=== PATIENT | male | born 1950 | race Hispanic/Latino ===

== ENCOUNTER 2018-05-10 10:14 | Emergency (ER) | payer OTHER, MEDICARE ==
[~2018-05-10 10:14] MED LIST: ASPI-1181 PO; ASPI-555 PO; ATOR20TA65 PO; CHOL200074 PO; CLOP75TA14 PO; CYAN100T PO; FERR325C PO; FERS325 PO; FOLI1TAB15 PO; FURO40TA5 PO; GABA-531 PO; IMAT400T2 PO; IMAT400T8 PO; ISOS120T14 PO; LEVO50 PO; LEVO500T2 PO; LEVO50TA11 PO; LOSA25TA41 PO; MECL-129 PO; METO50TA18 PO; METO75TA PO; MULT-1296 PO; PANT40TA25 PO; RANO10003 PO; SITA100T12 PO; SITA50TA PO; TRAM50TA2 PO
[2018-05-10 10:52] LABS: BASOPHILS % (AUTO) 0.3 % (0.0-5.0); EOSINOPHILS % (AUTO) 0.8 % (0.0-8.0); HEMATOCRIT 33.8 % (42-54); LYMPHOCYTES % (AUTO) 8.9 % (21.0-51.0); MEAN CORPUSCULAR HEMOGLOBIN 31.3 pg (27.0-33.0); MEAN CORPUSCULAR HGB CONC 33.8 g/dL (32.0-36.0); MEAN CORPUSCULAR VOLUME 92.6 fL (79-99); MONOCYTES % (AUTO) 6.1 % (3.0-13.0); NEUTROPHILS % (AUTO) 83.9 % (40.0-77.0); NUCLEATED RED BLOOD CELLS 0.1 % (0.0-0.19); PLATELET COUNT (AUTO) 256 K/uL (130-400); RED BLOOD CELL COUNT(AUTO) 3.64 MIL/uL (4.50-6.20); RED CELL DISTRIBUTION WIDTH 13.6 % (11.0-15.5); WHITE BLOOD COUNT (AUTO) 9.6 K/uL (4.8-10.8)
[2018-05-10 11:00] LABS: CREATININE 1.9 mg/dL (0.5-1.5); POTASSIUM 4.4 mmol/L (3.5-5.1)
[2018-05-10 11:06] LABS: ALBUMIN 3.4 g/dL (3.5-5.0); BILIRUBIN,TOTAL 0.5 mg/dL (0.2-1.0); TOTAL PROTEIN, SERUM 7.7 g/dL (6.0-8.3)
[2018-05-10 11:09] LABS: PARTIAL THROMBOPLASTIN TIME 27.5 SEC (26.3-35.5); PROTHROMBIN TIME 10.5 SEC (9.6-11.6)
[2018-05-10] MEDS ORDERED: TRAMADOL HCL 50 MG TABLET ONE (12:07)
== END 2018-05-10 12:48 | disposition home or self-care (01) ==
LOC: EDH 10:14
DX: I12.9 Hypertensive chronic kidney disease with stage 1 through stage 4 chronic kidney disease, or unspecified chronic kidney disease (principal); E11.22 Type 2 diabetes mellitus with diabetic chronic kidney disease; N18.9 Chronic kidney disease, unspecified; D64.9 Anemia, unspecified; R51 Headache; Z95.1 Presence of aortocoronary bypass graft; Z98.890 Other specified postprocedural states
CPT/HCPCS: 36415; 70450; 71045; 80053; 82550; 84484; 85025; 85610; 85730; 93005